=== PATIENT | male | born 1995 | race Two or more races ===

== ENCOUNTER → 2024-10-15 | Outpatient (CLI) | payer BC, SELFPAY ==
[2024-10-15 17:07] LABS: Alanine Aminotransferase 70 U/L (10-49); Albumin, Serum 4.9 gm/dL (3.5-5.0); Alkaline Phosphatase 99 U/L (46-116); Aspartate Amino Transferase 31 U/L (0-34); Bilirubin,Direct 0.2 mg/dL (0.0-0.3); Bilirubin,Total 0.7 mg/dL (0.3-1.2); Total Protein 7.6 gm/dL (5.7-8.2)
== END | disposition home or self-care (01) ==
PROVIDERS: PCP Internal Medicine; Referring Provider Internal Medicine; Visit Provider Internal Medicine
DX: Z00.00 Encounter for general adult medical examination without abnormal findings (principal)
CPT/HCPCS: 36415; 80076

== ENCOUNTER 2025-04-05 06:30 | Day surgery (SDC) | payer BC, SELFPAY ==
[2025-04-03 07:19] VITALS: BMI 27.8
[2025-04-03 08:51] LABS: Basophils % (Auto) 0 % (0-2.5); Eosinophils # (Auto) 0.1 Thou/mm3 (0.0-0.5); Eosinophils % (Auto) 2 % (0-10); Hematocrit 40.1 % (41.0-53.0); Hemoglobin 14.1 g/dL (13.5-16.0); Immature Granulocytes % (Auto) 1 % (0-0); Immature Granulocytes Auto 0.03 Thou/mm3 (0.00-0.00); Lymphocytes # (Auto) 2.2 Thou/mm3 (1.0-4.8); Lymphocytes % (Auto) 38 % (10-50); Mean Corpuscular HGB Conc 35.2 g/dl (31.0-37.0); Mean Corpuscular Hemoglobin 29.8 pg (25.0-35.0); Mean Corpuscular Volume 85 fL (80-100); Monocytes # (Auto) 0.4 Thou/mm3 (0.0-0.8); Monocytes % (Auto) 7 % (0-12); Neutrophils # (Auto) 3.1 Thou/mm3 (1.8-7.7); Neutrophils % (Auto) 52 % (37-80); Nucleated Red Blood Cell % 0 /100 WBC (0); Platelet Count 339 Thou/mm3 (140-440); RDW Standard Deviation 38.5 fL (35.1-43.9); Red Blood Count 4.73 Miln/mm3 (4.50-5.90); White Blood Count 5.9 Thou/mm3 (3.8-10.6)
[2025-04-03 09:00] LABS: Anion Gap 10 (7-16); BUN/Creatinine Ratio 14 Ratio (12-20); Blood Urea Nitrogen 14 mg/dL (9-23); Carbon Dioxide 27.4 mMol/L (20.0-31.0); Chloride 103 mMol/L (98-107); Estimated Creatinine Clearance 118.6 mL/min (>60); Glucose 113 mg/dL (74-106); Osmolality,Calculated 280 (275-295); Potassium 4.1 mMol/L (3.4-5.1); Sodium 140 mMol/L (136-145); eGFR > 60 See Note
--- NOTE | 2025-04-04 10:45 | ESHP_ITS ---
RE: SALLY COMBS : 1995 DATE OF ADMISSION: 04/05/2025 HISTORY OF PRESENT ILLNESS: The patient is a 29-year-old gentleman desiring bilateral vasectomy. He has three children. PAST SURGICAL HISTORY: The patient has cholecystectomy in the past. PAST MEDICAL HISTORY: No history of diabetes mellitus. No history of hypertension. ALLERGIES: NONE KNOWN. PHYSICAL EXAMINATION: HEENT: Normal. NECK: Supple. LUNGS: Clear. CARDIOVASCULAR: Heart sounds are normal. ABDOMEN: Soft without any organomegaly. No guarding. No rigidity. EXTREMITIES: Normal. GENITOURINARY: Phallus is normal. Testes are down in scrotum. Otherwise, external genitalia are normal. IMPRESSION: The patient desires bilateral vasectomy for family planning. PLAN: Bilateral vasectomy. Planned procedure risks and complications have been discussed with the patient. The patient has understood them and agreed to proceed. DT: 10:00:03 TT: 10:44:00 Ref: [id number] - TID: [id number]
--- NOTE | 2025-04-04 13:26 | SUR.PREOP ---
Pt notified to come in at 0630 tomorrow for surgery.
[2025-04-05] VITALS (8 sets, daily range): BP systolic 104–123; BP diastolic 67–76; PULSE 60–70; RESP 15–20; TEMP 36.2–36.5; O2SAT 96–99; BMI 27.3
--- NOTE | 2025-04-05 07:30 | SUR.PREOP ---
Patient expressed gratitude for prayer before their procedure.
--- NOTE | 2025-04-05 09:23 | SUR.PHASEI ---
pt received from OR in recovery bay 7. pt asleep but responds to voice, breathing unlabored on 6l oxymask. v/s stable. pt dressing to scrotal area cdi. report received from Kaleb DON and Dr. Loving.
--- NOTE | 2025-04-05 10:32 | SUR.PHASEII ---
pt awake and alert, breathing unlabored on room air. v/s stable. pt dressing to scrotal area cdi. pt able to ambulate to wheelchair with steady gait. d/c instructions given with Katy in room, all questions answered. pt d/c via wheelchair with all belongings.
--- NOTE | 2025-04-05 12:39 | ESOP_ITS ---
RE: SALLY COMBS : 1995 DATE OF OPERATION: 04/05/2025 PREOPERATIVE DIAGNOSIS: The patient desiring bilateral vasectomy for family planning. POSTOPERATIVE DIAGNOSIS: The patient desiring bilateral vasectomy for family planning. PROCEDURE PERFORMED: Bilateral vasectomy. ANESTHESIA: Monitored anesthesia with local. INDICATION: The patient is a 29-year-old gentleman desiring bilateral vasectomy for family planning. Planned procedure, risks, and complications have been discussed with the patient. The patient has understood them and agreed to proceed. DESCRIPTION OF PROCEDURE: After the patient was brought to the operating table under adequate monitored anesthesia, he was placed in supine position. Parts were prepped and draped in the usual fashion. Right-sided vasectomy was done first. Local anesthetic was injected into the skin. Small transverse incision was made approximately 0.5 cm long. Skin and subcutaneous tissues were incised. Hemostasis was obtained. Vas deferens was identified and was grasped with an Allis clamp. Two hemostats were placed and the segment between the hemostats was excised and submitted for histological examination. The ends of the vas deferens were fulgurated with electrocautery and ligated using 3-0 chromic catgut sutures. Complete hemostasis was obtained. The skin wound was closed with interrupted sutures of 3-0 chromic catgut. In a similar fashion, the left-sided vasectomy was done. Sterile dressing was then applied. The patient was then transferred to the recovery room in a satisfactory condition, having tolerated the entire procedure well. Sponge count and needle count at the end of the procedure was found to be correct. Estimated blood loss was approximately 1 mL. Thank you very much for your kind referral and for allowing me to participate in the management of this patient. cc: Felix Aldirch MD DT: 10:01:05 TT: 12:37:00 Ref: [id number] - TID: [id number]
== END 2025-04-05 10:32 | disposition home or self-care (01) ==
PROVIDERS: PCP Internal Medicine; Referring Provider Surgery; Visit Provider Surgery
PROC: (CPT 55250; principal; 2025-04-05 08:30)
DX: Z30.2 Encounter for sterilization (principal)
CPT/HCPCS: 55250; 36415; 80048; 85025; A4217; A4649; J0690; J2250; J2704; J3490; L8330; A9270; J0665